=== PATIENT | female | born 2000 | race Caucasian/White ===

== ENCOUNTER 2022-05-21 18:00 | Emergency (ER) | payer OTHER, SELFPAY ==
[2022-05-21 18:37] VITALS: BP 126/88; PULSE 76; RESP 18; TEMP 36; O2SAT 95; BMI 25.3
--- NOTE | 2022-05-21 18:37 | ED.GENADULT ---
HPI - General Adult General Chief complaint: General Medical Stated complaint: swollen lymph node Time Seen by Provider: 05/21/22 18:47 Source: patient Mode of arrival: ambulatory Limitations: no limitations History of Present Illness HPI narrative: 22-year-old female who presents to the ER today with complaints of swollen right lymph nod. Patient reports on May 12 she noticed some swelling and pain to her right neck. She was seen by her primary care doctor last Thursday and had labs done which reportedly were normal. Patient reports she was scheduled for an outpatient ultrasound as they were concerned that she had a right swollen lymph node. This ultrasound is Thursday. Patient is taking ibuprofen and Tylenol home with continued pain. She denies any flu-like symptoms, night sweats, weight loss, difficulty breathing or difficulty swallowing. Related Data Previous Rx's Medication Instructions Recorded cyclobenzaprine 10 mg tablet 10 mg PO TID PRN muscle spasm #10 05/21/22 tabs Allergies Allergy/AdvReac Type Severity Reaction Status Date / Time No Known Allergies Allergy Verified 05/21/22 18:37 Review of Systems Review of Systems: Yes all other systems are reviewed and are negative Constitutional: Constitutional: Reports no additional constitutional complaints, Denies body ache(s), Denies chills, Denies fever(s), Denies headache(s) and Denies weakness Eyes: Eyes: Reports no additional eye complaints and Denies change in vision ENT: Reports system reviewed and no additional complaints, except as documented, Denies dizziness, Denies headache(s), Denies nasal congestion, Denies nasal discharge and Reports neck pain Cardiovascular: Cardiovascular: Reports no additional cardiovascular complaints, Denies chest pain, Denies leg edema and Denies dyspnea Respiratory: Respiratory: Reports no additional respiratory complaints, Denies cough and Denies dyspnea Gastrointestinal: Gastrointestinal: Reports no additional gastrointestinal complaints, Denies abdominal pain, Denies diarrhea, Denies nausea and Denies vomiting Genitourinary: Genitourinary: Reports no additional female genitourinary complaints and Denies urinary incontinence Musculoskeletal: Musculoskeletal: Reports no additional musculoskeletal complaints, Denies back pain, Denies arthralgias, Denies joint swelling, Reports neck pain, Denies numbness and Denies tingling Integumentary/Breasts: Skin/Breast: Reports system reviewed and no additional complaints, except as docu and Denies rash Neurologic: Reports system reviewed and no additional complaints, except as documented, Denies dizziness, Denies headache(s), Denies numbness, Denies tingling and Denies weakness PMFSH Past Medical History Attestation statement: The following information was validated with the patient. Source: old records reviewed and nursing notes reviewed Social History Social History Advance Directives: No Advance Directives Information Provided: No Physical Exam ED Vital Signs: Vital Signs - 24 hr 05/21/22 18:37 Temperature 96.8 F Pulse Rate 76 Respiratory Rate 18 Blood Pressure 126/88 Pulse Oximetry 95 Oxygen Delivery Method Room Air BMI result Body Mass Index 25.3 Const General: cooperative, healthy appearing, comfortable and no acute distress Orientation/consciousness: patient oriented x3 Limitations: no limitations HENMT Head: Yes normal to inspection Ears: hearing grossly normal bilaterally and TM's normal bilaterally Throat: Yes posterior oropharynx normal, Yes tonsils normal and Yes uvula midline Eyes General: appearance normal, both eyes and all related structures Pupils: Equal, round and reactive pupils present Neck Other: I do not appreciate any lymphadenopathy. There is some mild tenderness over the right trapezius and supraclavicular area but I do not appreciate any lymphadenopathy, warmth, swelling. Patient has full range of motion the neck. Neck: Yes normal visual inspection, Yes full ROM, Yes no lymphadenopathy and Yes no meningeal signs Chest Chest palpation & inspection: normal inspection of the chest Resp Effort & Inspection: normal respiratory effort Auscultation: clear to auscultation bilaterally Cardio Rate: regular rate Rhythm: regular rhythm Peripheral pulses: Peripheral pulses 2+ throughout GI Inspection: Yes normal to inspection Palpation (GI): Soft to palpation and nontender General: Yes no CVA tenderness Back/Spine/Pelvis Back: no CVA tenderness Thoracic/Lumbar Spine: thoracic and lumbar spine normal to inspection Skin General skin exam: no rashes or lesions noted Neuro General: patient oriented x3, moves all extremities and no meningeal signs Cranial nerves: Yes Equal, round and reactive pupils present Cognition (Neuro): normal cognition Gait exam (Neuro): Normal gait present Extrem General: Yes normal to inspection Course Course Course Narrative: This is a rapid medical exam. deferred additional HPI, ROS, PE to primary provider. 22 yo female with history anxiety, depression here with swollen lymph node since 4/3 right neck. Taking motrin/tylenol without relief. No fevers, chills, systemic symptoms Medical Decision Making Medical Decision Making MDM Narrative: This 22-year-old female who presents to the ER with complaints of right-sided neck pain since May 12. Patient was seen by her primary care last week and was thought to have a swollen lymph node and so she had outpatient labs and was scheduled for an ultrasound for this Thursday but patient presents today as her pain is unrelieved with Motrin and Tylenol home. Patient has no associated systemic symptoms with this reported swollen lymph node. On exam I do not appreciate any lymphadenopathy, no meningeal signs. Full range of motion of the neck. No cervical midline tenderness, step-offs or deformities. Patient denies any red flag symptoms such as weight loss, fevers, night sweats, difficulty breathing, difficulty swallowing. ? Muscular. There is some tenderness over the supraclavicular right area and right trapezius. There is no bony tenderness. There is no associated swelling, redness, warmth. I recommend patient continue ibuprofen and Tylenol. I will add a low-dose muscle relaxant. She has an appointment on Thursday to have an ultrasound. I recommend she keep this using Motrin or Tylenol and follow up with her appointment to have her ultrasound. Recommend she return to the ER for any worsening signs or symptoms. Patient is comfortable plan for discharge home. Differential Diagnosis Differential Diagnoses: The differential diagnosis associated with the presentation includes Lymphadenopathy, muscle spasm, strain Discharge Plan Discharge Clinical Impression: Neck pain Patient Disposition: Home, Self-Care Instructions: Neck Pain (ED) Additional Instructions: I do not feel any swollen lymph node on exam. You can continue to keep your appointment on Thursday to have the ultrasound I would continue Motrin and Tylenol for pain as needed We are adding a low-dose muscle relaxer Apply heat to the area Return for fevers, night sweats, weight loss, difficulty breathing or difficulty swallowing Prescriptions: New cyclobenzaprine 10 mg tablet 10 mg PO TID PRN (Reason: muscle spasm) Qty: 10 0RF Referrals: Lisa Madera PA [Primary Care Provider] - 1 week Stand Alone Forms: Work/School Release Interventions: ED Discharge Assessment Last Done: 05/21/22 18:53 Discharge Date/Time: 05/21/22 18:54
== END 2022-05-21 18:54 | disposition home or self-care (01) ==
LOC: HO.ED 18:53
PROVIDERS: Emergency Provider Emergency Medicine; PCP Physician Assistant Medical
DX: M54.2 Cervicalgia (principal); R59.9 Enlarged lymph nodes, unspecified
CPT/HCPCS: 99282; 99283